=== PATIENT | female | born 1960 | race Caucasian/White ===

== ENCOUNTER 2016-12-25 07:34 | Emergency (ER) | payer OTHER ==
[~2016-12-25] VITALS: Ht 152.4 cm; Wt 67.6 kg
[~2016-12-25 07:34] MED LIST: ARIP10TA28 PO; FLUO40CA6 PO; TRAZ-286 PO
[2016-12-25 07:37] VITALS: BP 137/86
--- NOTE | 2016-12-25 07:41 | NUR ---
Patient ambulated to bed 7.
--- NOTE | 2016-12-25 07:44 | NUR ---
PATIENT PRESENTS TO ED WITH C/O SOB AND COUGH. PT C/O CHEST WALL PAIN W/COUGH . PT STATES SHE'S BEEN COUGHING FOR THE PAST 2 DAYS AND IT HAS GOTTEN PROGRESSIVELY WORSE . DENIES N/V/D; SKIN IS FLUSHED/WARM/DRY; AAOX4 WITH EVEN AND STEADY GAIT; PARUL WHEEZES AUSCULTATED THROUGHOUT LUNG BROWN; HR TACHYCARDIC; PATIENT STATES PAIN OF 10/10 AT THIS TIME; VSS; PATIENT POSITIONED FOR COMFORT; HOB ELEVATED; BEDRAILS UP X2; BED DOWN. ER MD MADE AWARE OF PT STATUS.
[2016-12-25] MEDS ORDERED: NACL 0.9% 1,000 ML IV SCH (07:49)
[2016-12-25] MEDS ORDERED: KETOROLAC 30 MG/ML VIAL IVP ONE (07:50)
--- NOTE | 2016-12-25 07:52 | NUR ---
Patient being evaluated by Dr. Hamilton at bedside.
[2016-12-25] MEDS ORDERED: ALBUTEROL 0.083% 2.5 MG/3 ML NEBU INH ONE (07:55)
[2016-12-25] MEDS ORDERED: IPRATROPIUM 0.02% 0.5 MG/2.5 ML NEBU INH ONE (07:55)
[2016-12-25 08:21] LABS: HEMOGLOBIN 12.4 g/dL (12.0-16.0); MEAN CORPUSCULAR HEMOGLOBIN 31 pg (27-31); MEAN CORPUSCULAR HGB CONC 34 g/dL (33-37); MEAN CORPUSCULAR VOLUME 93 fL (80-94); PLATELET COUNT (AUTO) 350 K/uL (140-450); RED BLOOD CELL COUNT(AUTO) 3.98 MIL/uL (4.20-5.40); RED CELL DISTRIBUTION WIDTH 12.2 % (11.6-13.7); WHITE BLOOD COUNT (AUTO) 19.7 K/uL (4.8-10.8)
[2016-12-25] MEDS ORDERED: ACETAMINOPHEN EXTRA STRENGTH 500 MG TAB PO ONE (08:25)
--- NOTE | 2016-12-25 08:26 | NUR ---
X-Ray at bedside.
[2016-12-25 08:38] LABS: ALBUMIN 2.9 g/dL (3.4-5.0); ANION GAP 14.1 (8-16); CALCIUM 8.5 mg/dL (8.5-10.1); POTASSIUM 3.1 mmol/L (3.5-5.1); TOTAL BILIRUBIN 0.7 mg/dL (0.0-1.0); TOTAL PROTEIN, SERUM 6.9 g/dL (6.4-8.2)
[2016-12-25 08:40] LABS: INR 1.2 (0.8-1.2); PARTIAL THROMBOPLASTIN TIME 29.6 secs (22-35.6); PROTHROMBIN TIME 11.5 secs (10.8-13.4)
[2016-12-25 09:08] LABS: BAND % (MANUAL) 11 % (0-8); EOSINOPHILS % (MANUAL) 2 % (0-4); LYMPHOCYTES % (MANUAL) 13 % (20-46); MONOCYTES % (MANUAL) 6 % (5-12); NEUTROPHILS % (MANUAL) 68 (43-65)
[2016-12-25] MEDS ORDERED: methylPREDNISolone SS 125 MG in WATER STERILE 2 ML IV ONE (09:50)
[2016-12-25] MEDS ORDERED: cefTRIAXone 1,000 MG VIAL ONE (10:15)
[2016-12-25 11:07] VITALS: BP 122/74
--- NOTE | 2016-12-25 11:07 | NUR ---
Patient discharged with v/s stable. Written and verbal after care instructions given and explained. Patient alert, oriented and verbalized understanding of instructions. Ambulatory with steady gait. All questions addressed prior to discharge. ID band removed. Patient advised to follow up with PMD. Rx of ROBITUSSIN DM, ALBUTEROL, PREDNISONE & ZITHROMAX Z-ANGLE given. Patient educated on indication of medication including possible reaction and side effects. Opportunity to ask questions provided and answered.
== END 2016-12-25 11:07 | disposition home or self-care (01) ==
LOC: MED 07:34
DX: J45.901 Unspecified asthma with (acute) exacerbation (principal); F17.210 Nicotine dependence, cigarettes, uncomplicated
CPT/HCPCS: 36415; 71010; 80053; 81025; 82553; 83690; 83880; 84484; 85025; 85610; 85730; 93005; 94640; 96361; 96365; 96375; 99285; J0696; J1885; J2930; J7030; J7060; J7613; J7644; Q0092

== ENCOUNTER 2018-11-10 17:12 | Emergency (ER) | payer OTHER ==
[~2018-11-10] VITALS: Ht 152.4 cm; Wt 63.5 kg
[~2018-11-10 17:12] MED LIST changes: +ABI10 PO; -ARIP10TA28 PO; -TRAZ-286 PO; +TRAZ-343 PO
[2018-11-10 17:14] VITALS: BP 159/93
--- NOTE | 2018-11-10 17:18 | NUR ---
PT TRIAGED AND SENT TO ER LOBBY
--- NOTE | 2018-11-10 18:18 | NUR ---
PT REEVALUATED, NO CHANGE IN CONDITION AT THIS TIME.
--- NOTE | 2018-11-10 18:30 | NUR ---
PT AMBULATED TO BED 1
--- NOTE | 2018-11-10 18:41 | NUR ---
PT BIB SELF TO THE ED WITH THE CHIEF C/O COUGH FOR A MONTH. PER PT SHE WAS SEEN BY DOCTOR IN [facility]. TOOK ANTIBIOTICS AND COUGH MEDICINE FROM THERE PRESCRIBED BUT SYMPTOMS HAS NOT GONE. YELLOWISH PHLEGM PRESENTS WITH COUGH. NO BLOOD IN PHLEGHM. DENIES FEVER. LUNGS CLEAR. DENIES N/V/D. REPORTS GENERALIZED PAIN OF 9/10 AT THIS TIME. ER MD AWARE.
--- NOTE | 2018-11-10 19:01 | NUR ---
REPORT GIVEN TO ELECTRIC MOTOR AND GENERATOR ASSEMBLER RN.
--- NOTE | 2018-11-10 19:17 | NUR ---
PATIENT LEFT WITHOUT BEING SEEN BY DR. ALVAREZ. NO FURTHER CARE PROVIDED FOR PATIENT.
== END 2018-11-10 19:17 | disposition left against medical advice (07) ==
LOC: MED 17:12
DX: R05 Cough (principal); M79.10 Myalgia, unspecified site; Z53.21 Procedure and treatment not carried out due to patient leaving prior to being seen by health care provider

== ENCOUNTER 2020-07-25 01:25 | Emergency (ER) | payer OTHER ==
--- NOTE | 2020-07-25 01:37 | NUR ---
First call, patient is not outside
--- NOTE | 2020-07-25 01:43 | NUR ---
Called for the second time, pt is not outside in the tent
--- NOTE | 2020-07-25 01:48 | NUR ---
CALLED FOR THE THIRD TIME, NO RESPONSE PATIENT LEFT WITHOUT BEING SEEN BY DR. ROACH. NO FURTHER CARE PROVIDED FOR PATIENT.
== END 2020-07-25 01:48 | disposition left against medical advice (07) ==
LOC: MED 01:25
DX: Z53.21 Procedure and treatment not carried out due to patient leaving prior to being seen by health care provider (principal)